=== PATIENT | female | born 1955 | race Caucasian/White ===

== ENCOUNTER → 2019-01-18 | Outpatient (CLI) | payer BC ==
--- NOTE | 2019-01-18 16:30 | CARD ---
MR#: [id number] Date of Study: 01/18/2019 Ordering Physician: MONTY ORDOÑEZ, Referring Physician: MONTY ORDOÑEZ, Tech: Shanon Mccarthy APPROVED REPORT EXAM: Two-dimensional and M-mode echocardiogram with Doppler and color Doppler. Other Information Quality : GoodHR: 49bpm INDICATION Palpitations Tachycardia 2D DIMENSIONS RVDd3.2 (2.9-3.5cm)Left Atrium(2D)2.6 (1.6-4.0cm) IVSd0.8 (0.7-1.1cm)Aortic Root(2D)2.2 (2.0-3.7cm) LVDd4.0 (3.9-5.9cm)LVOT Diameter2.0 (1.8-2.4cm) PWd0.8 (0.7-1.1cm)LVDs2.9 (2.5-4.0cm) FS (%) 27.5 %SV37.9 ml Aortic Valve AoV Peak Andrew.126.5cm/sAoV VTI28.6cm AO Peak GR.6.4mmHgLVOT Peak Andrew.94.6cm/s LVOT VTI 22.77cmAO Mean GR.3mmHg JANNETTE (VMAX)1.22wt0IAN (VTI)2.59cm2 Mitral Valve MV E Hxliwsfa69.6cm/sMV DECEL UYXZ002at MV A [place]19.1cm/sMV HHD10tg E/A Ratio1.3MVA (PHT)2.57cm2 TDI E/Lateral E'7.9E/Medial E'8.5 Pulmonary Valve PV Peak Syqumgtg450.0cm/sPV Peak Grad.5mmHg Tricuspid Valve TR P. Ncsjejmw887ap/sRAP [id number] TR Peak Gr.53xaYaTMSJ34ojXl Pulmonary Vein S1 Pvjnrmfm87.1cm/sD2 Xrgrgidc62.4cm/s PVa teasabdj292cilo LEFT VENTRICLE The left ventricle is normal size. There is normal left ventricular wall thickness. The left ventricu lar systolic function is normal and the ejection fraction is within normal range. The Ejection Fracti on is 55-60%. There is normal LV segmental wall motion. The left ventricular diastolic function and f illing is normal for age. RIGHT VENTRICLE The right ventricle is normal size. There is normal right ventricular wall thickness. The right ventr icular systolic function is normal. ATRIA The left atrium size is normal. The right atrium size is normal. The interatrial septum is intact wit h no evidence for an atrial septal defect or patent foramen ovale as noted on 2-D or Doppler imaging. AORTIC VALVE The aortic valve is normal in structure and function. Doppler and Color Flow revealed no significant aortic regurgitation. There is no significant aortic valvular stenosis. MITRAL VALVE The mitral valve is normal in structure and function. There is no evidence of mitral valve prolapse. There is no mitral valve stenosis. Doppler and Color-flow revealed trace mitral regurgitation. TRICUSPID VALVE The tricuspid valve is normal in structure and function. Doppler and Color Flow revealed trace tricus pid regurgitation with an estimated PAP of 28 mmHg. There is no tricuspid valve stenosis. PULMONIC VALVE The pulmonic valve is not well visualized. Doppler and Color Flow revealed no pulmonic valvular regur gitation. GREAT VESSELS The aortic root is normal in size. The IVC is normal in size and collapses >50% with inspiration. PERICARDIAL EFFUSION There is no evidence of significant pericardial effusion. Critical Notification Critical Value: No <Conclusion> The left ventricle is normal size. The left ventricular systolic function is normal and the ejection fraction is within normal range. The Ejection Fraction is 55-60%. There is no significant aortic valvular stenosis. Doppler and Color Flow revealed no significant aortic regurgitation. Doppler and Color-flow revealed trace mitral regurgitation. Doppler and Color Flow revealed trace tricuspid regurgitation with an estimated PAP of 28 mmHg. Signed by : Nilo Godinez MD Electronically Approved : 01/18/2019 16:29:42
== END | disposition home or self-care (01) ==
LOC: ECHO 10:39
PROVIDERS: ATTEND Internal Medicine Cardiovascular Disease
DX: I47.1 Supraventricular tachycardia (principal); R00.2 Palpitations
CPT/HCPCS: 93306

== ENCOUNTER → 2021-01-08 | Outpatient (CLI) | payer BC ==
--- NOTE | 2021-01-08 16:53 | CARD ---
MR#: [id number] Date of Study: 01/08/2021 Ordering Physician: MONTY ORDOÑEZ, Referring Physician: MONTY ORDOÑEZ Tech: Tonya Yeager [facility] APPROVED REPORT EXAM: Two-dimensional and M-mode echocardiogram with Doppler and color Doppler. Other Information Quality : AverageHR: 60bpm Rhythm : NSRTechnically limited study due to body habitus. INDICATION Palpitations 2D DIMENSIONS RVDd2.4 (2.9-3.5cm)Left Atrium(2D)2.9 (1.6-4.0cm) IVSd0.8 (0.7-1.1cm)Aortic Root(2D)2.7 (2.0-3.7cm) LVDd4.1 (3.9-5.9cm)LVOT Diameter1.7 (1.8-2.4cm) PWd0.7 (0.7-1.1cm)LVDs2.4 (2.5-4.0cm) FS (%) 40.0 %SV51.4 ml LVEF(%)71.2 (>50%) Aortic Valve AoV Peak Andrew.129.9cm/sAoV VTI33.1cm AO Peak GR.6.7mmHgLVOT Peak Andrew.116.7cm/s AO Mean GR.3mmHgAVA (VMAX)2.02cm2 Mitral Valve MV E Aogydxuf30.7cm/sMV DECEL [id number] MV A Fduhfqkv17.2cm/sE/A Ratio0.8 Tricuspid Valve TR P. Tzxibnbo117yf/sTR Peak Gr.16mmHg LEFT VENTRICLE The left ventricle is normal size. There is normal left ventricular wall thickness. The left ventricu lar systolic function is normal and the ejection fraction is within normal range. Estimated ejection fraction 60-65%. There is normal LV segmental wall motion. Tissue Doppler imaging reveals mild left v entricular diastolic dysfunction. RIGHT VENTRICLE The right ventricle is normal size. There is normal right ventricular wall thickness. The right ventr icular systolic function is normal. ATRIA The left atrium size is normal. The right atrium size is normal. The interatrial septum is intact wit h no evidence for an atrial septal defect or patent foramen ovale as noted on 2-D or Doppler imaging. AORTIC VALVE The aortic valve is not well visualized. Doppler and Color Flow revealed no significant aortic regurg itation. There is no significant aortic valvular stenosis. MITRAL VALVE The mitral valve is normal in structure and function. There is no evidence of mitral valve prolapse. There is no mitral valve stenosis. Doppler and Color-flow revealed trace mitral regurgitation. TRICUSPID VALVE The tricuspid valve is normal in structure and function. Doppler and Color Flow revealed trace tricus pid regurgitation. Estimated PAP 20 mmHg. There is no tricuspid valve stenosis. PULMONIC VALVE Doppler and Color Flow revealed no pulmonic valvular regurgitation. There is no pulmonic valvular amber nosis. GREAT VESSELS The aortic root is normal in size. The ascending aorta is normal in size. The IVC is normal in size a nd collapses >50% with inspiration. PERICARDIAL EFFUSION There is no evidence of significant pericardial effusion. Critical Notification Critical Value: No <Conclusion> The left ventricular systolic function is normal and the ejection fraction is within normal range. E stimated ejection fraction 60-65%. There is normal LV segmental wall motion. Signed by : Trace Aguilar, Electronically Approved : 01/08/2021 16:52:55
== END ==
LOC: ECHO 10:47
PROVIDERS: ATTEND Internal Medicine Cardiovascular Disease
DX: I47.1 Supraventricular tachycardia (principal)
CPT/HCPCS: 93306